=== PATIENT | female | born 1990 | race Two or more races ===

== ENCOUNTER 2024-05-05 09:26 | Day surgery (SDC) | payer OTHER ==
[~2024-05-05 09:26] MED LIST: IBU800 MG PO; SURFAK240 M1 PO
[2024-05-05] MEDS ORDERED: POVIDONE-IODINE 118 ML BOTT TOP ONE (17:00)
== END 2024-05-05 22:00 | disposition home or self-care (01) ==
LOC: CIR.AMB 09:26
PROVIDERS: ATTEND Specialist
DX: N84.0 Polyp of corpus uteri (principal)

== ENCOUNTER → 2024-12-04 | Emergency (ER) | payer OTHER ==
[~2024-12-04] VITALS: Ht 157.5 cm; Wt 52.2 kg
[~2024-12-04] MED LIST changes: +PRENATABS FA T1 EACH
[2024-12-04 13:08] LABS: HEMATOCRIT 31.5 % (36.0-45.00); MEAN CELL VOLUME 92.5 fL (80.00-100.00); MEAN CORPUSCULAR HEMOGLOBIN 32.3 pg (27.00-32.0); MEAN CORPUSCULAR HGB CONC 34.9 g/dl (32.0-36.0); PLATELET COUNT 338 K/uL (150-450); RED BLOOD COUNT 3.41 M/uL (4.00-6.00); RED CELL DISTRIBUTION WIDTH 12.8 % (11.5-14.5)
[2024-12-04 13:40] LABS: URINE APPEARANCE Clear; URINE BILIRRUBIN Negative (NEGATIVE); URINE BLOOD Small; URINE COLOR Yellow; URINE GLUCOSE Negative (NEGATIVE); URINE KETONE Negative (NEGATIVE); URINE LEUKOCYTE Negative; URINE NITRATE Negative; URINE PROTEIN Negative (NEGATIVE); URINE UROBILINOGEN 0.2 E.U./dl
[2024-12-04 13:42] LABS: URINE BACTERIA 139.5 uL (0.0-1933); URINE EPITHELIAL CELLS 9.1 uL (0.0-38.8)
[2024-12-04 13:46] LABS: URINE RBC 0.5 uL (0.0-20.8)
== END | disposition home or self-care (01) ==
LOC: ER 11:27
PROVIDERS: Emergency Medicine
DX: O20.8 Other hemorrhage in early pregnancy (principal); Z3A.10 10 weeks gestation of pregnancy

== ENCOUNTER 2024-12-12 10:40 | Emergency (ER) | payer OTHER ==
[~2024-12-12] VITALS: Ht 157.5 cm; Wt 52.2 kg
[2024-12-12] MEDS ORDERED: IRON325 MG PO (11:26)
[2024-12-12 12:51] LABS: HEMATOCRIT 29.4 % (36.0-45.00); HEMOGLOBIN 10.4 g/dL (12.0-15.00); MEAN CELL VOLUME 92.1 fL (80.00-100.00); MEAN CORPUSCULAR HEMOGLOBIN 32.7 pg (27.00-32.0); MEAN CORPUSCULAR HGB CONC 35.5 g/dl (32.0-36.0); PLATELET COUNT 290 K/uL (150-450); RED BLOOD COUNT 3.19 M/uL (4.00-6.00); RED CELL DISTRIBUTION WIDTH 12.9 % (11.5-14.5)
== END 2024-12-12 17:37 | disposition home or self-care (01) ==
LOC: EDBD 10:40 → ER 10:40
PROVIDERS: Emergency Medicine
DX: O20.8 Other hemorrhage in early pregnancy (principal); Z3A.12 12 weeks gestation of pregnancy